=== PATIENT | female | born 1945 | race Caucasian/White ===

== ENCOUNTER 2017-03-27 06:41 | Inpatient (IN) | payer MEDICARE, OTHER ==
[~2017-03-27 06:41] MED LIST: CEFAZOLIN 2 Gram 2 GM/50 ML BAG IVPB ONE; CELECOXIB 100 MG CAPSULE PO ONE; FAMOTIDINE 20MG TABLET PO ONE; MECLIZINE 25 MG TABLET PO ONE; METOCLOPRAMIDE 10 MG TABLET PO ONE; VANCOMYCIN HCL 1,000 MG in DEXTROSE 5 % IN WATER 250 ML IVPB ONE
[2017-03-27 07:46] LABS: ABO GROUP A; ANTIBODY SCREEN NEGATIVE (NEGATIVE); RH TYPE POSITIVE
[2017-03-27] MEDS ORDERED: KETOROLAC 30 MG/ML VIAL IVP PRN ×2 (10:54)
[2017-03-27] MEDS ORDERED: BISACODYL 10 MG SUPP RC PRN (10:54)
[2017-03-27] MEDS ORDERED: DIPHENHYDRAMINE HCL 25 MG CAPSULE PO PRN (10:54)
[2017-03-27] MEDS ORDERED: HYDROMORPHONE HCL 2 MG/ML VIAL IM PRN (10:54)
[2017-03-27] MEDS ORDERED: ZOLPIDEM TARTRATE 5 MG TABLET PO PRN (10:54)
[2017-03-27] MEDS ORDERED: NALOXONE 0.4 MG/1 ML VIAL IVP PRN (10:54)
[2017-03-27] MEDS ORDERED: MAGNESIUM HYDROXIDE 30 ML UDC PO PRN (10:54)
[2017-03-27] MEDS ORDERED: ACETAMINOPHEN 325 MG TAB PO PRN (10:54)
[2017-03-27] MEDS ORDERED: HYDROCODONE/APAP 10/325 TABLET PO PRN ×2 (10:54)
[2017-03-27] MEDS ORDERED: TRAMADOL HCL 50 MG TABLET PO PRN (10:54)
[2017-03-27] MEDS ORDERED: ACETAMINOPHEN W/ CODEINE 300MG/60MG TABLET PO PRN ×2 (10:54)
[2017-03-27] MEDS ORDERED: AL HYDROX/MAG HYDROX 30ML UD PO PRN (10:54)
[2017-03-27] MEDS ORDERED: 0.9 % SODIUM CHLORIDE 100ML BAG IV ONE (14:15)
[2017-03-27] MEDS ORDERED: TRANEXAMIC ACID 1,000 MG/10 ML ML IV ONE ×2 (14:15→15:36)
[2017-03-27] MEDS ORDERED: PROMETHAZINE HCL 25 MG/ML VIAL IVP ONE (14:15)
[2017-03-27] MEDS: ONDANSETRON HCL IV 4 MG/2 ML VIAL IVP PRN ×2 (15:27→21:14)
--- NOTE | 2017-03-27 15:33 | Operative Note ---
DATE: 03/27/17 PREOPERATIVE DIAGNOSIS: PROFOUND END-STAGE ARTHROSIS OF THE LEFT KNEE. POSTOPERATIVE DIAGNOSIS: PROFOUND END-STAGE ARTHROSIS OF THE LEFT KNEE. PROCEDURE: Cemented left total knee arthroplasty using [employer] Karen II components with a size 5 [place] Chrome femur, size 4 stemmed tibial baseplate, a 13 mm lipped tibial insert, and a 35 mm all-plastic patella. STAFF SURGEON: TORREY MCKEON M.D. ANESTHESIA: SPINAL. PREPARATION: CHLORAPREP. INDIVIDUAL CONSIDERATIONS: None. PROCEDURE: The patient was taken to the Operating Room and placed supine on the operating table. She had a successful induction of a general anesthetic. Her left lower extremity was prepped and draped in the usual fashion. The patient had a midline approach to the knee. The limb was elevated and the tourniquet was inflated at 250 mmHg. Sharp dissection was carried down through the skin and subcutaneous tissue. Small veins were coagulated with a Bovie. A medial arthrotomy was performed. The patella was everted and the knee was flexed. I could only flex the knee about 80 degrees at this point. Her knee was destroyed. There was quite a bit of bone loss medially and huge marginal osteophytes. Provisional osteophytes removed, fat pad was resected, and provisional anterior meniscectomies were performed. The capsule was released from the medial proximal tibia. There really was no ACL. An initial femoral remote pilot operator hole was then made freehand. The intramedullary femoral cutting jig was placed and it was cut 7.0 degrees of valgus and adjusted for rotation and secured with pins for a 10 mm resection. The initial transverse cut was then made. Skin guide was placed in the anterior and posterior remote pilot operator holes. It was found that a size 5 would be appropriate. The anterior and posterior cuts followed by chamfer cuts were made. Osteophytes removed and a size 5 trial was placed and found to fit well. The tibia was brought forward and the remainder of the meniscal remnants were removed with a Bovie. The extra-articular tibial cutting jig was placed and it was cut in neutral with 3-degree AP slope. Care was taken to adjust for rotation using the extra-articular alignment guide and bony landmarks. It was set for a 9 mm resection, keyed off the high lateral side, and secured with pins. When cutting the tibia, care was taken to preserve the PCL insertion on the tibia. After removing huge marginal osteophytes and just multiple large loose bodies posteriorly, I was able to fit a size 4 baseplate. I adjusted it for rotation and secured with pins. I started 11 but later a 13 mm implant, this gave excellent motion and stability. The femoral remote pilot operator holes were impacted , and the triflange tibial stamp was impacted, and these trial components were removed. The patella was then cut freehand taking under 9 mm of bone to accommodate the bone loss. It was found that a 35 patella fit appropriately and the three remote pilot operator holes were drilled. The knee was then thoroughly irrigated out with pulsatile Betadine and saline to remove any visual or palpable debris. Remaining multiple loose bodies were irrigated out and removed from the posterior compartment. The tourniquet was let down briefly to get bleeders posteriorly then placed back up again. The knee was again thoroughly irrigated out and bony surfaces were dried. A size 4 stemmed tibial baseplate was cemented in placed followed by impaction of the 13 mm lipped tibial insert, followed by cementing in the size 5 [place] Chrome femur, followed by cementing of the 35 mm patella. After the cement had set, there was excellent motion and stability. Ligamentous balance, rotation, alignment, and patellofemoral tracking were normal. No lateral release was required. The tourniquet was let down and hemostasis was obtained with a Bovie. Final irrigation. I then infiltrated the skin, subcutaneous tissue , and periosteum with 30 mL of 0.25% Marcaine with Epinephrine. The fascia was then closed with running #2 Quill, subcut was closed in layers with running 0 Quill, and the skin was closed with deb. The patient did receive a gram of Tranexamic Acid preoperatively. I mixed a gram of Tranexamic Acid with30 mL of saline and injected into the knee through a sterile 18-gauge needle and a sterile [place] compressive silver nitrate dressing was applied. The patient tolerated the procedures well. Needle and sponge counts were correct. Estimated blood loss was minimal. She was taken back to Recovery in good condition. There were no complications. cc: Dr. Addison Win JOB NUMBER: [id number] MTDD
[2017-03-27] MEDS ORDERED: 0.9 % SODIUM CHLORIDE 10 ML VIAL IVP ONE (15:36)
[2017-03-27] MEDS: HUMULIN R 100 UNIT/ML VIAL SQ SCH ×2 (15:47→17:15)
--- NOTE | 2017-03-27 15:50 | Rehab Evaluation ---
Patient Information - Patient Information Diagnosis: L knee OA Ordered Treatment: PT Evaluate and Treat Status: Initial Evaluation Surgery: Yes (L TKA) Date of Surgery: 03/27/17 Past Medical/Surgical Hx: PAST MEDICAL/SURGICAL HISTORY Past Surgical History hyst hernia repair karena lumbar sx c scopes PMH - Respiratory Hx Respiratory Disorders No PMH - Cardiovascular Hx Cardiovascular Disorders Yes Hx Hypertension Yes: on meds good control Exercise Tolerance Fair Comment: due to knees PMH - Neuro Hx Neurological Disorders Yes Hx Neuropathy Yes: right hand PMH - GI Hx Gastrointestinal Disorders Yes Hx Gastroesophageal Reflux Yes: triggered by certain foods Hx Irritable Bowel Yes: occassionally bothered by this PMH - Hx Genitourinary Disorders No Comment: s/p hyst PMH - Endocrine Hx Endocrine Disorders Yes Hx Diabetes Yes: dx'd 9 yrs ago Hx of IDDM Yes: started insulin 3-4 years ago Comment: A1C 7 FBS 135-150 PMH - Musculoskeletal Hx Musculoskeletal Disorders Yes Hx Arthritis Yes PMH - Psych Hx Psychiatric Problems Yes Hx Anxiety Yes: mild PMH - Hematology/Oncology Hx Hematology/Oncology Yes Disorders Hx Blood Transfusion Reaction No Premorbid Status: Detail Social History: Detail (The patient lives with in a one story home with 2 steps to enter house with one railing on the left. The patient's bathroom is equipped with walk in shower with a seat and grab bars and elevated toilet with grab bars. The patient has a standard walker. The patient's son is going to assist with housework and meals after discharge.) Precautions: [place], Other (WBAT on the L LE.) - Time With Patient Total Time Spent With Patient (Min): 30 Treatment Procedures: Detail (Initial Evaluation and gait training.) Subjective Information - Subjective Information Per Patient (The patient had no complaints of pain. The patient complained of nausea and lightheadness.) Objective Data - Mental Status Patient Orientation: Oriented x3 (The patient was sleepy and had difficulty opening her eyes.) - Visual Perception Appears within normal limits for therapeutic activities - ROM Not within normal limits (The patient has L knee AROM limitations secondary to S /P surgery. Formal measurements were not taken at this time.) - Strength/Tone Not within normal limits (The patient's LE strength was not formally tested at this time, however was functional. The patient was able to lift L LE in and out of bed independently.) - Bed Mobility Independent (The patient was independent with supine to and from sit transfer and scooting up in bed. The patient became nauseated when sitting and vomited without production.) - Transfers Independent (The patient was independent with sit to jose.) - Balance Balance Sitting: Good Balance Standing: Good - Sensation Intact - Gait Detail (The patient ambulated with standard walker WBAT on the L LE with CG of 1 plus one to handle IV, a distance of 11 feet x 1.) Therapy Assessment - Therapy Assessment Detail (The patient was independent with bed mobility and transfers and required CG of 1. Patient was lethargic probably due to medications. Feel the patient will progress well.) Problem List - Problem List Physical Therapy Problem List: Detail (1) Decreased L knee AROM and LE strength as to be expected following TKA surgery. 2) Nonambulatory on stairs 3) Ambulation on levels with assistive device and with CG) Goals - Goals Physical Therapy Goals: 1) The patient will ambulate independently with appropriate assistive device WBAT on the L LE a distance of 50 -75 feet. 2) The patient will ambulate on 2 steps with supervision for safety only. 3) The patient will be independent with HEP of TKA exercises Prognosis - Prognosis Good Plan - Plan Physical Therapy Plan: PT 1-2 times a day for ambulation on levels and stairs and instruction in HEP until all inpatient PT goals have been met.
[2017-03-27] MEDS: POTASSIUM CHLORIDE/D5-0.9%NACL 20 MEQ/1,000 ML BAG IV SCH (17:29)
[2017-03-27] MEDS: CEFAZOLIN 2 Gram 2 GM/50 ML BAG IVPB SCH (17:31)
[2017-03-27] MEDS: DOCUSATE SODIUM 100 MG CAPSULE PO SCH (21:06)
[2017-03-27] MEDS: GEMFIBROZIL 600 MG PO SCH (21:11)
[2017-03-27] MEDS: PATIENT OWN MED: METOPROLOL SUCCINATE 25 MG PO SCH (21:13)
[2017-03-27] MEDS: PATIENT OWN MED: METFORMIN 1000 MG PO SCH (21:13)
[2017-03-27] MEDS ORDERED: LEVEMIR SC SCH (22:00)
[2017-03-28] MEDS: CEFAZOLIN 2 Gram 2 GM/50 ML BAG IVPB SCH ×2 (00:56→09:32)
[2017-03-28] MEDS: POTASSIUM CHLORIDE/D5-0.9%NACL 20 MEQ/1,000 ML BAG IV SCH ×2 (02:36→02:37)
[2017-03-28 06:54] LABS: HEMATOCRIT 28.2 % (35.0-47.0); HEMOGLOBIN 9.1 gm/dl (11.6-16.0)
[2017-03-28] MEDS ORDERED: PATIENT OWN MED: LEVOTHYROXINE 50 MCG PO SCH (07:00)
[2017-03-28 07:14] LABS: CREATININE 1.1 mg/dL (0.5-0.9)
[2017-03-28] MEDS: DOCUSATE SODIUM 100 MG CAPSULE PO SCH (09:20)
[2017-03-28] MEDS: GEMFIBROZIL 600 MG PO SCH (09:22)
[2017-03-28] MEDS: PATIENT OWN MED: METFORMIN 1000 MG PO SCH (09:23)
[2017-03-28] MEDS: PATIENT OWN MED: METOPROLOL SUCCINATE 25 MG PO SCH (09:23)
[2017-03-28] MEDS: HUMULIN R 100 UNIT/ML VIAL SQ SCH (09:31)
[2017-03-28] MEDS ORDERED: RIVAROXABAN 10 MG TABLET PO SCH (10:00)
[2017-03-28] MEDS ORDERED: LISINOPRIL PO SCH (10:00)
[2017-03-28] MEDS ORDERED: HCTZ PO SCH (10:00)
[2017-03-28] MEDS ORDERED: FERROUS SULFATE 325 MG TAB PO SCH (10:00)
--- NOTE | 2017-03-28 11:03 | Physical Therapy Tx Note ---
Physical Therapy Tx Note - Treatment Note Tolerated: Good Total Time Spent With Patient: 30 Physical Therapy Tx Note: Detail (The patient was sitting in her chair upon arrival. The patient was able to transfer from sit to stand requiring supervision only. The patient was able to ambulate with a standard walker using WBAT on the L from her room to the nurse's station, about 54 feet, and required supervision only. The patient then completed 3 steps ascending and descending, and only required verbal cues for walker placement on appropriate step. She only required supervision for completing the stairs. She ambulated back to her room from the nurse's station using 2WW and WBAT on L, another 54 ft. She did show signs of fatigue after this distance, but did complete without stopping. She returned to her chair after walking. Her HEP was reviewed, which includes 10 reps of the following exercises: Quad Sets, Hamstring sets, glut. sets, and SLR. She was able to return demonstration, and understood she was to complete 10 reps of each exercise 2-3x/day. The patient completed all inpatient skills this session, and does not require further inpatient PT at this time.) Physical Therapy Problem List: Detail (1) Decreased L knee AROM and LE strength as to be expected following TKA surgery) Physical Therapy Goals: 1) The patient will ambulate independently with appropriate assistive device WBAT on the L LE a distance of 50 -75 feet - MET. 2) The patient will ambulate on 2 steps with supervision for safety only - MET. 3) The patient will be independent with HEP of TKA exercises - MET Prognosis: Good Physical Therapy Plan: No further inpatient PT required at this time as all goals have been met. Will monitor until discharge.
[2017-03-28] MEDS ORDERED: EPHEDRINE SULFATE 50 MG/ML ML IV ONE (12:39)
[2017-03-28] MEDS ORDERED: DIPHENHYDRAMINE HCL IV 50 MG/ML VIAL IVP ONE (12:39)
[2017-03-28] MEDS ORDERED: PROPOFOL 10 MG/ML VIAL IV ONE (12:39)
[2017-03-28] MEDS ORDERED: HYDROMORPHONE HCL 2 MG/ML VIAL IV ONE (12:39)
[2017-03-28] MEDS ORDERED: FENTANYL PF 100MCG/2ML VIAL IV ONE (12:39)
[2017-03-28] MEDS ORDERED: LIDOCAINE 2% MDV (20MG/ML) 20ML VIAL IV ONE (12:39)
[2017-03-28] MEDS ORDERED: MIDAZOLAM HCL 2MG/2ML VIAL IV ONE (12:39)
--- NOTE | 2017-03-28 13:28 | Rehab Evaluation ---
Patient Information - Patient Information Diagnosis: L knee DJD Ordered Treatment: OT Evaluate and Treat Status: Initial Evaluation Surgery: Yes (L TKA) Date of Surgery: 03/27/17 Past Medical/Surgical Hx: PAST MEDICAL/SURGICAL HISTORY Past Surgical History hyst hernia repair karena lumbar sx c scopes PMH - Respiratory Hx Respiratory Disorders No PMH - Cardiovascular Hx Cardiovascular Disorders Yes Hx Hypertension Yes: on meds good control Exercise Tolerance Fair Comment: due to knees PMH - Neuro Hx Neurological Disorders Yes Hx Neuropathy Yes: right hand PMH - GI Hx Gastrointestinal Disorders Yes Hx Gastroesophageal Reflux Yes: triggered by certain foods Hx Irritable Bowel Yes: occassionally bothered by this PMH - Hx Genitourinary Disorders No Comment: s/p hyst PMH - Endocrine Hx Endocrine Disorders Yes Hx Diabetes Yes: dx'd 9 yrs ago Hx of IDDM Yes: started insulin 3-4 years ago Comment: A1C 7 FBS 135-150 PMH - Musculoskeletal Hx Musculoskeletal Disorders Yes Hx Arthritis Yes PMH - Psych Hx Psychiatric Problems Yes Hx Anxiety Yes: mild PMH - Hematology/Oncology Hx Hematology/Oncology Yes Disorders Hx Blood Transfusion Reaction No Premorbid Status: Detail (Pt lives with spouse in a 1 story house. She has 1 step with railing at entrance. She has a walk in shower with seat and grab bar but usually stands to shower. She has an elevated toilet, no grab bar. She is Ind with all home mgmt, meal prep and laundry. She has a standard walker and 2 reachers.) Social History: Detail (Supportive children will be available on a limited basis.) Precautions: [place], Other (WBAT on the L LE, DNR) - Time With Patient Total Time Spent With Patient (Min): 35 Treatment Procedures: Detail (OT eval low complexity) Subjective Information - Subjective Information Per Patient Objective Data - Pain Pain Present: Yes (06/05) - Mental Status Patient Orientation: Oriented x3 - Visual Perception Appears within normal limits for therapeutic activities - ROM Within normal limits (Sam UE AROM WNL) - Strength/Tone Within normal limits (Sam UE strength WNL) - Coordination Appears within normal limits for therapeutic activities - Transfers Independent (Ind with sit to stand from chair.) - Balance Balance Sitting: Good Balance Standing: Good - Sensation Intact - ADL's/IADL's Detail (Pt educated and demonstrated learning of LE dressing using modified dressing technique. Reviewed shower safety, kitchen modifications and laundry modifications, pt verbalizes learning.) Therapy Assessment - Therapy Assessment Detail (Pt is safe and Ind with lower body dressing. Verbalizes understanding of IADL modifications.) Problem List - Problem List Physical Therapy Problem List: Detail (1) Decreased L knee AROM and LE strength as to be expected following TKA surgery) Occupational Therapy Problem List: Detail (No current OT problems identified.) Goals - Goals Physical Therapy Goals: 1) The patient will ambulate independently with appropriate assistive device WBAT on the L LE a distance of 50 -75 feet - MET. 2) The patient will ambulate on 2 steps with supervision for safety only - MET. 3) The patient will be independent with HEP of TKA exercises - MET Occupational Therapy Goals: No current OT goals identified. Prognosis - Prognosis Good Plan - Plan Physical Therapy Plan: No further inpatient PT required at this time as all goals have been met. Will monitor until discharge. Occupational Therapy Plan: No further IP OT recommended. Thank you for this referral.
--- NOTE | 2017-03-28 19:25 | Discharge Summary ---
DATE OF ADMISSION: 03/27/2017 DATE OF DISCHARGE: 03/28/2017 DATE OF SURGERY: 03/27/2017 HISTORY: Danika is a delightful 71-year-old female who presents with profound end-stage arthrosis of her left knee. She was admitted after a left total knee arthroplasty. Postoperatively, she did extraordinarily well. Basically, she was in some discomfort but she was actually in less discomfort than she was preoperatively. DISCHARGE INSTRUCTIONS: The plan is to discharge her home in the care of her family. Home PT and Visiting Nurse has been arranged. She will be given [place] for pain and Xarelto for DVT prophylaxis. [facility] followed her while she was in the hospital for diabetes briefly. She will follow-up in my office in four weeks. Her sutures will be removed by the Visiting Nurse in two weeks. Her discharge hemoglobin was 9.1. Her discharge condition was good. FINAL DIAGNOSIS/PRIMARY DIAGNOSIS: END-STAGE ARTHROSIS OF THE LEFT KNEE. SECONDARY DIAGNOSES: TYPE II DIABETES, STABLE. OPERATIVE BLOOD LOSS ANEMIA. OPERATIONS AND PROCEDURES: CEMENTED LEFT TOTAL KNEE ARTHROPLASTY. cc: Dr. Tk Coreas JOB NUMBER: [id number] MTDD
== END 2017-03-28 13:40 | disposition home or self-care (01) | DRG 470 ==
LOC: MEDSURG 06:41 → EDSTATUS 09:00 → MEDSURG 12:46
PROVIDERS: ADMIT Orthopaedic Surgery; ATTEND Orthopaedic Surgery
PROC: 0SRD069 Replacement of Left Knee Joint with Oxidized Zirconium on Polyethylene Synthetic Substitute, Cemented, Open Approach (ICD-10-PCS; principal; 2017-03-27 09:00)
DX: M17.12 Unilateral primary osteoarthritis, left knee (principal); E11.9 Type 2 diabetes mellitus without complications; Z79.84 Long term (current) use of oral hypoglycemic drugs; E03.9 Hypothyroidism, unspecified; E78.00 Pure hypercholesterolemia, unspecified; I10 Essential (primary) hypertension
CPT/HCPCS: 36416; 80048; 82948; 85014; 85018; 86850; 86900; 86901; 94761; 97165; 97530; J1200; J2405; J2550; J3480; J7060

== ENCOUNTER 2017-04-25 08:56 | Day surgery (SDC) | payer MEDICARE, OTHER ==
[~2017-04-25 08:56] MED LIST changes: +ACETAMINOPHEN 1,000 MG/100 ML BTL IV ONE; -CEFAZOLIN 2 Gram 2 GM/50 ML BAG IVPB ONE; -CELECOXIB 100 MG CAPSULE PO ONE; -FAMOTIDINE 20MG TABLET PO ONE; -MECLIZINE 25 MG TABLET PO ONE; -METOCLOPRAMIDE 10 MG TABLET PO ONE; -VANCOMYCIN HCL 1,000 MG in DEXTROSE 5 % IN WATER 250 ML IVPB ONE
[2017-04-25] MEDS ORDERED: MECLIZINE 25 MG TABLET PO ONE (08:57)
[2017-04-25] MEDS ORDERED: HYDROCODONE/APAP 7.5/325MG TABLET PO ONE (08:57)
[2017-04-25] MEDS ORDERED: KETOROLAC 30 MG/ML VIAL IVP ONE (08:57)
[2017-04-25] MEDS ORDERED: PROPOFOL 10 MG/ML VIAL IV ONE (08:57)
[2017-04-25] MEDS ORDERED: METOCLOPRAMIDE 10 MG TABLET PO ONE (08:57)
[2017-04-25] MEDS ORDERED: LIDOCAINE 2% MDV (20MG/ML) 20ML VIAL IV ONE (08:57)
[2017-04-25] MEDS ORDERED: FENTANYL PF 100MCG/2ML VIAL IV ONE (08:57)
[2017-04-25] MEDS ORDERED: METHYLPREDNISOLONE 40MG/VIAL IM ONE (08:57)
[2017-04-25] MEDS ORDERED: FAMOTIDINE 20MG TABLET PO ONE (08:57)
--- NOTE | 2017-04-26 07:46 | Operative Note ---
DATE: 04/25/2107. PREOPERATIVE DIAGNOSIS: ARTHROFIBROSIS OF THE LEFT KNEE. POSTOPERATIVE DIAGNOSES: ARTHROFIBROSIS OF THE LEFT KNEE. PROCEDURES: 1. Left knee manipulation. 2. Left knee injection. STAFF SURGEON: Mic Yo M.D. ANESTHESIA: General. PREPARATION: ChloraPrep. INDIVIDUAL CONSIDERATIONS: None. DESCRIPTION OF THE PROCEDURE: The patient was taken to the operating room and placed supine on the operating table. She had successful induction of a general anesthetic. I manipulated her knee. I was easily able to manipulate her into full extension with just minimal effort. At about 45 degrees of flexion, there was slight resistance. I was able to push through this easily and get her to 130 degrees. I then prepped superolaterally with ChloraPrep. I then injected sterilely 10 mL of 0.5% Marcaine with epinephrine along with 40 mg of Depo Medrol through a sterile 18-gauge needle. A Band-Aid was applied. Anesthesia was reversed, and she was taken back to recovery in good condition. There were no complications. JOB NUMBER: [id number] MTDD
== END 2017-04-25 11:45 | disposition home or self-care (01) ==
LOC: SUR 08:56
PROVIDERS: ATTEND Orthopaedic Surgery
DX: M24.662 Ankylosis, left knee (principal); I10 Essential (primary) hypertension; E78.00 Pure hypercholesterolemia, unspecified; E11.9 Type 2 diabetes mellitus without complications; Z79.4 Long term (current) use of insulin
CPT/HCPCS: 27570; 20610; 01380; J1885; J3010; J1030